=== PATIENT | male | born 1965 | race Two or more races ===

== ENCOUNTER → 2018-03-15 | Outpatient (CLI) | payer OTHER ==
[~2018-03-15] MED LIST: AVANDAMET 1 MG/1 TAB PO; JANUMET 50-1,1 UDTAB; KENALOG-1010 MG/1 ML IJ; NABUMETONE500 MG PO; PERCOCET 5/3251 TAB PO
== END | disposition home or self-care (01) ==
LOC: RAD 10:55
DX: M54.5 Low back pain (principal)

== ENCOUNTER 2018-07-15 14:04 | Emergency (ER) | payer OTHER ==
[~2018-07-15] VITALS: Ht 180.3 cm; Wt 75.7 kg
== END 2018-07-15 17:55 | disposition home or self-care (01) ==
LOC: ER 14:04
DX: S90.02XA Contusion of left ankle, initial encounter (principal); W18.39XA Other fall on same level, initial encounter; Y93.89 Activity, other specified; Y92.89 Other specified places as the place of occurrence of the external cause; Y99.8 Other external cause status

== ENCOUNTER → 2018-10-03 | Outpatient (CLI) | payer OTHER | END | disposition home or self-care (01) | LOC: SONOGRAMA 09:34 | DX: R80.8 Other proteinuria (principal); E11.00 Type 2 diabetes mellitus with hyperosmolarity without nonketotic hyperglycemic-hyperosmolar coma (NKHHC) ==

== ENCOUNTER 2019-01-31 09:18 | Emergency (ER) | payer OTHER ==
[~2019-01-31] VITALS: Ht 177.8 cm; Wt 77.1 kg
== END 2019-02-01 16:30 | disposition home or self-care (01) ==
LOC: ER 09:18 → CPU-OBS 09:21 → ER 09:21
DX: M94.0 Chondrocostal junction syndrome [Tietze] (principal); R07.89 Other chest pain; B34.9 Viral infection, unspecified
CPT/HCPCS: G0378; G0379; 93005; 93306

== ENCOUNTER 2020-07-10 18:00 | Emergency (ER) | payer OTHER ==
[~2020-07-10] VITALS: Ht 177.8 cm; Wt 72.6 kg
[2020-07-10] MEDS ORDERED: CEFADROXIL500 MG PO (20:25)
[2020-07-10] MEDS ORDERED: KETO10TA2 PO (20:25)
== END 2020-07-10 21:14 | disposition home or self-care (01) ==
LOC: ER 18:00
DX: K11.21 Acute sialoadenitis (principal); I16.0 Hypertensive urgency; I10 Essential (primary) hypertension; Z03.818 Encounter for observation for suspected exposure to other biological agents ruled out

== ENCOUNTER → 2020-07-30 | Outpatient (CLI) | payer OTHER ==
[~2020-07-30] MED LIST changes: +CEFADROXIL500 MG PO; +KETO10TA2 PO
== END | disposition home or self-care (01) ==
LOC: OFIC 805 09:19
PROVIDERS: ATTEND Otolaryngology Otology & Neurotology
DX: J34.89 Other specified disorders of nose and nasal sinuses (principal); M54.2 Cervicalgia; R22.1 Localized swelling, mass and lump, neck; K11.20 Sialoadenitis, unspecified

== ENCOUNTER 2020-12-04 14:56 | Outpatient (CLI) | payer OTHER | END 2020-12-04 15:06 | disposition home or self-care (01) | LOC: RAD 14:56 | PROVIDERS: ATTEND Internal Medicine Cardiovascular Disease | DX: R07.89 Other chest pain (principal) ==

== ENCOUNTER 2023-11-08 09:12 | Outpatient (CLI) | payer OTHER | END 2023-11-08 09:27 | disposition home or self-care (01) | LOC: SONOGRAMA 09:12 | PROVIDERS: ATTEND General Practice | DX: R94.4 Abnormal results of kidney function studies (principal); I10 Essential (primary) hypertension; E11.8 Type 2 diabetes mellitus with unspecified complications; Z86.16 Personal history of COVID-19; R94.5 Abnormal results of liver function studies; I69.80 Unspecified sequelae of other cerebrovascular disease ==

== ENCOUNTER 2023-11-09 09:21 | Outpatient (CLI) | payer OTHER | END 2023-11-09 09:31 | disposition home or self-care (01) | LOC: SONOGRAMA 09:21 | PROVIDERS: ATTEND General Practice | DX: R94.4 Abnormal results of kidney function studies (principal); I10 Essential (primary) hypertension; E11.8 Type 2 diabetes mellitus with unspecified complications; Z86.16 Personal history of COVID-19; R94.5 Abnormal results of liver function studies; I69.80 Unspecified sequelae of other cerebrovascular disease ==

== ENCOUNTER 2023-11-25 09:45 | Outpatient (CLI) | payer OTHER | END 2023-11-25 09:52 | disposition home or self-care (01) | LOC: RAD 09:45 | PROVIDERS: ATTEND General Practice | DX: R09.81 Nasal congestion (principal); R05.9 Cough, unspecified; Z13.83 Encounter for screening for respiratory disorder NEC; I10 Essential (primary) hypertension ==

== ENCOUNTER 2023-12-12 09:03 | Outpatient (CLI) | payer OTHER | END 2023-12-12 09:08 | disposition home or self-care (01) | LOC: MRI 09:03 | PROVIDERS: ATTEND Psychiatry & Neurology Neurology | DX: I66.21 Occlusion and stenosis of right posterior cerebral artery (principal); I10 Essential (primary) hypertension; R26.0 Ataxic gait | CPT/HCPCS: 70551 ==

== ENCOUNTER 2024-07-12 13:26 | Outpatient (CLI) | payer OTHER ==
[~2024-07-12 13:26] MED LIST changes: +AMIODARONE HCL400 MG; +AMLODIPINE-OLM1 EACH PO; +COZAAR100 MG PO; +ELIQUIS5 MG PO; +HYDRALAZINE HC100 MG PO; +HYDROCHLOROTHIA25 MG PO; +JARDIANCE25 MG PO; +VALACYCLOVIR1000 MG PO
== END 2024-07-12 13:36 | disposition home or self-care (01) ==
LOC: SONOGRAMA 13:26
PROVIDERS: ATTEND Specialist/Technologist, Other Nephrology
DX: N18.30 Chronic kidney disease, stage 3 unspecified (principal); I12.9 Hypertensive chronic kidney disease with stage 1 through stage 4 chronic kidney disease, or unspecified chronic kidney disease

== ENCOUNTER 2024-10-28 17:52 | Emergency (ER) | payer OTHER ==
[~2024-10-28] VITALS: Ht 175.3 cm; Wt 75.7 kg
[2024-10-28] MEDS ORDERED: KETOROLAC TROMETHAMINE 30 MG VIAL IM STA (18:10)
[2024-10-28] MEDS ORDERED: KETOROLAC TROMETHAMINE 30 MG VIAL ONE (18:32)
[2024-10-28 18:36] LABS: HEMATOCRIT 44.4 % (39.0-48.0); HEMOGLOBIN 14.5 g/dL (13-16.00); MEAN CELL VOLUME 85.6 fL (80.0-100.00); MEAN CORPUSCULAR HGB CONC 32.7 g/dl (32.0-36.0); PLATELET COUNT 195 K/uL (150-450); RED BLOOD COUNT 5.19 M/uL (4.00-6.00); RED CELL DISTRIBUTION WIDTH 15.3 % (11.5-14.5)
[2024-10-28 18:57] LABS: CALCIUM 9.6 mg/dL (8.5-10.1); CREATININE SERUM 1.47 mg/dL (0.70-1.30); GFR 48.86; POTASSIUM 3.61 mEq/L (3.5-5.1)
== END 2024-10-28 19:45 | disposition home or self-care (01) ==
LOC: ER 17:54
PROVIDERS: General Practice
DX: K11.20 Sialoadenitis, unspecified (principal); I10 Essential (primary) hypertension

== ENCOUNTER 2025-07-29 06:04 | Emergency (ER) | payer OTHER ==
[~2025-07-29] VITALS: Ht 175.3 cm; Wt 70.8 kg
[2025-07-29] MEDS ORDERED: CEFTRIAXONE SODIUM 1,000 MG VIAL IV ONE (08:00)
[2025-07-29] MEDS ORDERED: KETOROLAC TROMETHAMINE 60 MG VIAL IM ONE ×2 (08:00→09:13)
[2025-07-29] MEDS ORDERED: DEXAMETHASONE SODIUM PHOSP/PF 10 MG/ML VIAL IV ONE (08:00)
[2025-07-29] MEDS ORDERED: 0.9 % SODIUM CHLORIDE 1,000 ML IV ONE (08:00)
[2025-07-29] MEDS ORDERED: DEXAMETHASONE SODIUM PHOSPHATE 4 MG/ML VIAL ONE (09:14)
[2025-07-29] MEDS ORDERED: CEFTRIAXONE SODIUM 1,000 MG VIAL ONE (09:15)
[2025-07-29 10:03] LABS: BASO % 0.4 % (0.1-1.2); EOS # 0.04 (0.04-0.54); EOS % 0.4 % (0.7-7.0); LYMPH # 0.62 (1.18-3.74); LYMPH % 6.3 % (19.3-53.1); MEAN PLATELET VOLUME 10.90 fl (9.4-12.4); MONO # 0.62 (0.24-0.82); MONO % 6.3 % (4.7-12.5); NEUT # 8.42 (1.56-6.13); NEUT % 86.0 % (34.0-71.1); RED CELL DISTRIBUTION WIDTH 14.0 % (11.6-14.4)
[2025-07-29 10:12] LABS: ERYTHROCYTE SEDIMENTATION RATE 27 mm/hr (0-20)
[2025-07-29 10:38] LABS: ALT/SGPT 42 U/L (12-78); AST/SGOT 25 U/L (15-37); BILIRUBIN TOTAL 0.60 mg/dL (0.3-1.2); BUN CREA RATIO 26 (7.0-25.0); CREATININE SERUM 1.20 mg/dL (0.70-1.30); GFR 61.55; GLOBULINA 3.1 G/DL (2.4-3.5); GLUCOSE FASTING 142 mg/dL (65-100); OSMOLALITY SERUM 286 MOSM/KG (275-295)
[2025-07-29 10:40] LABS: INR 1.04
[2025-07-29] MEDS ORDERED: MEDROLPACK PO (12:18)
[2025-07-29] MEDS ORDERED: PEPCID AC20 MG PO (12:18)
[2025-07-29] MEDS ORDERED: AMOX1TAB5 PO (12:18)
== END 2025-07-29 13:05 | disposition home or self-care (01) ==
LOC: ER 06:05
PROVIDERS: General Practice
DX: K11.20 Sialoadenitis, unspecified (principal); I10 Essential (primary) hypertension; E11.9 Type 2 diabetes mellitus without complications
CPT/HCPCS: 36415; 70491; Q9965